=== PATIENT | male | born 2000 | race Caucasian/White ===

== ENCOUNTER 2024-04-07 22:29 | Emergency (ER) | payer BC, SELFPAY ==
[2024-04-07 22:35] VITALS: BP 164/106; BMI 46.8
[2024-04-07 22:50] VITALS: BP 118/101
[2024-04-07 23:00] VITALS: BP 109/56
[2024-04-07 23:11] LABS: % Basophils 1.3 % (0-2); % Immature Granulocytes 0.4 % (0-0.5); % Lymphocytes 32.2 % (20.5-51.1); % Monocytes 11.4 % (1.7-9.3); % Neutrophils 53.7 % (42.2-75.2); Absolute Basophils 0.2 10^3/uL (0-0.2); Absolute Eosinophils 0.1 10^3/uL (0-0.7); Absolute Immature Granulocytes 0.1 10^3/uL (0-0.05); Absolute Lymphocytes 4.1 10^3/uL (1.2-3.4); Absolute Monocytes 1.5 10^3/uL (0.1-0.6); Absolute Neutrophils 6.9 10^3/uL (1.4-6.5); Hematocrit 39.7 % (39.0-52.0); Hemoglobin 14.2 g/dL (13.0-18.0); Mean Corp Hgb Conc. 35.8 g/dL (33.0-37.0); Mean Corpuscular Volume 83.9 fL (80.0-94.0); Mean Platelet Volume 10.2 fL (7.4-10.4); Nucleated Red Blood Cells % 0 % (-); Platelet Count 318 10^3/uL (130-400); Red Blood Cell Count 4.73 10^6/uL (4.70-6.10); White Blood Cell Count 12.8 10^3/uL (4.8-10.8)
--- NOTE | 2024-04-07 23:20 | ED.GENMED ---
History of Present Illness
<TOMMY Felder - Last Filed: 04/07/24 23:36>
General
Chief Complaint: Chest Pain
Source: patient
Exam Limitations: none
Time Seen by Provider: 04/07/24 22:56
History of Present Illness
History of Present Illness:
This is a 24 YO M with no significant PMH presents here today for intermittent chest pain x 3 days. He states he was not doing anything out of the ordinary when this first occurred. He describes the pain as sharp, and localized to the LUSB with one
episode of radiating pain into his left arm. He complains of a constant headache for the past three days. He admits to taking Advil for pain without relief. He rates the severity a 3-4/10. Denies fever, chills, SOB, N, V, and diarrhea. Pt reports
this has never happened before.
Denies smoking history. Occasional alcohol use consisting of beers. 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 Denies recent surgeries, hospitalizations, or recent trauma.
<Robb Gomez DO - Last Filed: 04/08/24 03:08>
Travel History
Have you had any contact with someone who has COVID-19?: No
Do you have any symptoms of coronavirus? Fever > 100 degrees, chills, cough, shortness of breath, sore throat, loss of taste or smell, muscle aches, or headache?: No
Past History
<TOMMY Felder - Last Filed: 04/07/24 23:36>
Social History
Tobacco: Non-smoker
Alcohol: Occasional
Review of Systems
<TOMMY Felder - Last Filed: 04/07/24 23:36>
Review of Systems
Allergies reviewed?: Yes
Constitutional: Reports no symptoms
EENT: Reports no symptoms
Respiratory: Reports no symptoms
Cardiac: Reports chest pain
ABD/GI: Reports no symptoms
: Reports no symptoms
Musculoskeletal: Reports no symptoms
Skin: Reports no symptoms
Neurological: Reports headache
Phy Exam
<TOMMY Felder - Last Filed: 04/07/24 23:36>
Physical Exam
Physical Exam:
Normal S1 and S2 without murmurs, rubs, or gallops. Breath sounds are equal bilaterally.
General Physical Exam
General Presentation: well appearing
General age: appears stated age
General Skin: diaphoretic (Back area)
General Habitus: obese
Scores
<Robb Gomez DO - Last Filed: 04/08/24 03:08>
Heart Score for Chest Pain Patients
STEMI patient?: No
History: Slightly or Non-Suspicious
ECG: Normal
Age: </= 45 years
Risk Factors: No Risk Factors
Troponin: </= Normal Limit
Heart Score for Chest Pain Patients: 0
Heart Score Risk: 2.5% MACE over next 6 weeks
PE Wells Score
Symptoms of DVT: No
No alternative diagnosis better explains the illness: No
Tachycardia with pulse > 100: No
Immobilization (>=3 days) or surgery within previous 4 weeks: No
Prior history of DVT or pulmonary embolism: No
Presence of hemoptysis: No
Presence of malignancy: No
Pulmonary Embolism Risk Score: 0
Probability of PE: Pt is low risk
Course
<TOMMY Felder - Last Filed: 04/07/24 23:36>
Orders/Labs/Results
Orders:
Orders
04/07/24 22:34
Electrocardiogram (*1) Urgent
Reason for Study: Chest Pain
EKG- Treatment ONCE
04/07/24 23:01
Complete Blood Count/With Diff Urgent
Comprehensive Metabolic Panel Urgent
Troponin I Urgent
04/08/24 00:42
Electrocardiogram (*1) Urgent
Reason for Study: Chest Pain
EKG- Treatment ONCE
04/08/24 01:36
D-Dimer Urgent
Troponin I Urgent
04/08/24 02:14
CR Chest - 2 Views Urgent
Comment:
Reason For Exam: chest pain
Abnormal Lab Results
04/07/24
23:01
WBC 12.8 H 10^3/uL
(4.8-10.8)
Abs Immat Gran (auto) 0.1 H 10^3/uL
(0-0.05)
Absolute Neuts (auto) 6.9 H 10^3/uL
(1.4-6.5)
Absolute Lymphs (auto) 4.1 H 10^3/uL
(1.2-3.4)
Absolute Monos (auto) 1.5 H 10^3/uL
(0.1-0.6)
Monocytes % 11.4 H %
(1.7-9.3)
Creatinine 0.6 L mg/dL
(0.7-1.3)
Glucose 113 H mg/dl
(70-99)
04/07/24 23:01
04/07/24 23:01
Vital Signs
Initial and Last Documented VS:
Initial Vital Signs
Temp Pulse Resp BP Pulse Ox
98.7 F 98 18 164/106 99
04/07/24 22:35 04/07/24 22:35 04/07/24 22:35 04/07/24 22:35 04/07/24 22:35
Last Documented Vital Signs
Temp Pulse Resp BP Pulse Ox
98.7 F 83 17 109/56 96
04/07/24 22:35 04/07/24 23:30 04/07/24 23:30 04/07/24 23:00 04/07/24 23:30
<Robb Gomez, DO - Last Filed: 04/08/24 03:08>
Orders/Labs/Results
Orders:
Orders
04/07/24 22:34
Electrocardiogram (*1) Urgent
Reason for Study: Chest Pain
EKG- Treatment ONCE
04/07/24 23:01
Complete Blood Count/With Diff Urgent
Comprehensive Metabolic Panel Urgent
Troponin I Urgent
04/08/24 00:42
Electrocardiogram (*1) Urgent
Reason for Study: Chest Pain
EKG- Treatment ONCE
04/08/24 01:36
D-Dimer Urgent
Troponin I Urgent
04/08/24 02:14
CR Chest - 2 Views Urgent
Comment:
Reason For Exam: chest pain
Abnormal Lab Results
04/07/24
23:01
WBC 12.8 H 10^3/uL
(4.8-10.8)
Abs Immat Gran (auto) 0.1 H 10^3/uL
(0-0.05)
Absolute Neuts (auto) 6.9 H 10^3/uL
(1.4-6.5)
Absolute Lymphs (auto) 4.1 H 10^3/uL
(1.2-3.4)
Absolute Monos (auto) 1.5 H 10^3/uL
(0.1-0.6)
Monocytes % 11.4 H %
(1.7-9.3)
Creatinine 0.6 L mg/dL
(0.7-1.3)
Glucose 113 H mg/dl
(70-99)
04/07/24 23:01
04/07/24 23:01
Vital Signs
Initial and Last Documented VS:
Initial Vital Signs
Temp Pulse Resp BP Pulse Ox
98.7 F 98 18 164/106 99
04/07/24 22:35 04/07/24 22:35 04/07/24 22:35 04/07/24 22:35 04/07/24 22:35
Last Documented Vital Signs
Temp Pulse Resp BP Pulse Ox
98.7 F 83 17 109/56 96
04/07/24 22:35 04/07/24 23:30 04/07/24 23:30 04/07/24 23:00 04/07/24 23:30
<TOMMY Felder - Last Filed: 04/07/24 23:36>
MDM/Problems Addressed
Differential Diagnosis Includes:
HTN, Costochondritis, STEMI vs. NSTEMI
MDM/Problems Addressed:
Intermittent CP x 3 days
<TOMMY Felder - Last Filed: 04/07/24 23:36>
*Critical Care Note
Total Time (30-74mins, 75-104mins- exclusive of procedures): Not Applicable
ED Attending Note
<Robb Gomez DO - Last Filed: 04/08/24 03:08>
ED Attending Note
Patient seen and examined by attending physician: Yes
I performed the substantive portion of visit, reviewed & personally made and approve the management plan that is documented in note by myself or ADRIAN.: Yes
ED Attending Note:
24-year-old male that presents with intermittent chest pain that is been present for the last 3 days. He states that he was at rest when the pain initially occurred. Patient denies any current radiation. He reports no alleviating or exacerbating
symptoms denies fever, chills, nausea or vomiting. Patient reports no cardiac history or familial cardiac history. Patient was seen in conjunction with the PA student. I have reviewed and agree with the history and treatment plan presented. On
my independent physical exam, patient is awake, alert, and oriented x3, no acute distress at time of exam. Heart is regular rate and rhythm. Lungs are clear to auscultation bilaterally without wheezes rales or rhonchi. Patient is obese.
EKG shows normal sinus rhythm rate 86 with normal intervals, normal axis. No evidence of acute ischemia present. This is normal EKG.
-
Portions of this chart may have been created with voice recognition software.� Occasional wrong word or��sound alike� substitutions may have occurred due to the inherent limitations of voice recognition software.
Discharge Plan
Departure
Patient Disposition: Home (Routine Discharge)
Date of Disposition: 04/08/24
Time of Disposition: 03:07
Patient with high blood pressure during this ER visit?: No
Condition: Good
Discharge Problem:
Chest pain
Instructions: Chest Pain PCP Follow Up
Referrals:
Felicitas Foster CRNP [Family Provider] -
Activity Restrictions/Additional Instructions:
It was a pleasure meeting you and taking part in your care. We hope for your continued healing and wellness.
Please read discharge instructions in their entirety. However, they are for general education and may not describe your exact diagnosis at discharge. Information on your ER visit and medical conditions were discussed with you along with appropriate
follow up information...
If indicated, please take your medications as instructed and indicated on discharge paperwork.
Please schedule a follow up appointment as directed. Call to schedule an appointment
Please return to the emergency department with ANY change in, persisting, or worsening of symptoms. If any of your symptoms do not improve, or persist, or become more severe within 6-12 hours, please return to the emergency department for further
care.
Please return to the emergency department if you develop a headache, neck pain/stiffness, fever greater than 100.4F, chest pain, shortness of breath, persistent nausea, vomiting, slurred speech, difficulty walking, numbness/tingling, weakness, signs
of infection or any other symptoms that are worrisome to you.
If you have any questions or concerns please do not hesitate to call the Hospital at or E-mail me directly at [email or web address]
Interventions
Interventions:
*Risk Screen - Suicide Last Done: 04/07/24 22:35
*General Assessment Last Done: 04/07/24 23:00
*Neglect/Abuse Screening Last Done: 04/07/24 22:35
ED- Fall Risk Assessment Last Done: 04/07/24 22:35
*ED COVID-19 Vaccine History Last Done: 04/07/24 23:00
ED- Cardiac Assessment Last Done: 04/07/24 23:00
Discharge Date and Time
Print Language: KUWAITI
[2024-04-07 23:23] LABS: ALT (SGPT) 31 U/L (0-50); AST (SGOT) 30 U/L (17-59); Albumin 4.5 g/dl (3.5-5.0); Alkaline Phosphatase 73 U/L (38-126); Blood Urea Nitrogen 15 mg/dl (9-20); Calcium 9.5 mg/dl (8.4-10.2); Carbon Dioxide 25 mmol/L (22-30); Chloride 103 mmol/L (98-107); Estimated Creatinine Clearance > 125 ml/min; Glucose 113 mg/dl (70-99); Potassium 4.3 mmol/L (3.5-5.1); Sodium 137 mmol/L (135-145); Total Bilirubin 0.5 mg/dl (0.2-1.3); Total Protein 7.7 g/dl (6.3-8.2); eGFR > 60.00
[2024-04-07 23:34] LABS: Troponin I < 0.012 ng/ml
[2024-04-08] VITALS: BP 112/62
[2024-04-08 01:02] VITALS: BP 119/60
[2024-04-08 01:54] LABS: D-Dimer 0.37 ug/mlFEU (0.00-0.50)
[2024-04-08 02:09] LABS: Troponin I < 0.012 ng/ml
== END 2024-04-08 03:21 | disposition home or self-care (01) ==
LOC: EMR 22:29
PROVIDERS: Emergency Medicine; EMERGENCY PHYSICIAN Student in an Organized Health Care Education/Training Program; FAMILY PHYSICIAN Nurse Practitioner Family
DX: R07.89 Other chest pain (principal); R51.9 Headache, unspecified; M79.602 Pain in left arm; E66.9 Obesity, unspecified
CPT/HCPCS: 99284; 71046; 80053; 84484; 85025; 85379; 93005

== ENCOUNTER 2024-07-15 10:09 | Emergency (ER) | payer BC, SELFPAY ==
[2024-07-15] VITALS (7 sets, daily range): BP systolic 116–162; BP diastolic 48–104; BMI 47.2
[2024-07-15 11:31] LABS: % Basophils 0.5 % (0-2); % Eosinophils 2.4 % (0-6); % Immature Granulocytes 0.4 % (0-0.5); % Lymphocytes 12.6 % (20.5-51.1); % Monocytes 7.3 % (1.7-9.3); % Neutrophils 76.8 % (42.2-75.2); Absolute Basophils 0.1 10^3/uL (0-0.2); Absolute Eosinophils 0.4 10^3/uL (0-0.7); Absolute Immature Granulocytes 0.1 10^3/uL (0-0.05); Absolute Lymphocytes 2.3 10^3/uL (1.2-3.4); Absolute Monocytes 1.3 10^3/uL (0.1-0.6); Absolute Neutrophils 14.2 10^3/uL (1.4-6.5); Hematocrit 41.9 % (39.0-52.0); Hemoglobin 15.1 g/dL (13.0-18.0); Mean Corpuscular Hgb 30.1 pg (27.0-31.0); Mean Corpuscular Volume 83.6 fL (80.0-94.0); Mean Platelet Volume 10.2 fL (7.4-10.4); Nucleated Red Blood Cells % 0 % (-); Platelet Count 331 10^3/uL (130-400); Red Blood Cell Count 5.01 10^6/uL (4.70-6.10); Red Cell Dist. Width 12.3 % (11.5-14.5); White Blood Cell Count 18.5 10^3/uL (4.8-10.8)
[2024-07-15 11:44] LABS: ALT (SGPT) 27 U/L (0-50); AST (SGOT) 28 U/L (17-59); Alkaline Phosphatase 60 U/L (38-126); Blood Urea Nitrogen 16 mg/dl (9-20); Calcium 10.2 mg/dl (8.4-10.2); Carbon Dioxide 25 mmol/L (22-30); Chloride 101 mmol/L (98-107); Estimated Creatinine Clearance > 125 ml/min; Glucose 109 mg/dl (70-99); Potassium 4.2 mmol/L (3.5-5.1); Sodium 139 mmol/L (135-145); Total Bilirubin 0.8 mg/dl (0.2-1.3); Total Protein 7.9 g/dl (6.3-8.2); eGFR > 60.00
[2024-07-15 11:55] LABS: Troponin I < 0.012 ng/ml
[2024-07-15] MEDS: TORADOL 30 MG IV (13:54)
[2024-07-15] MEDS: REGLAN 10 MG IV (13:54)
--- NOTE | 2024-07-15 15:46 | ED.GENMED ---
History of Present Illness
General
Chief Complaint: Chest Pain
Source: patient and family
Exam Limitations: none
Time Seen by Provider: 07/15/24 10:37
Nursing documentation reviewed up to this point in time: agreed with
History of Present Illness
History of Present Illness:
24-year-old male presenting to the emergency department today with 2 main concerns. First concern is chest discomfort described as an achy discomfort in the left upper chest seems to be intermittent over the past few days had an episode this
morning a few hours prior to arrival to the emergency department. Not associate with shortness of breath nausea vomiting or diarrhea. Additionally had a diffuse headache that starts in the front of his head as a pressure radiates to the back of
his head has been following up with his primary care doctor for this and was treated with methylprednisolone and also given a Z-Ramos for possible sinusitis. Otherwise the headache at this point is minimal he denies this being abrupt or severe at
this moment. No neurologic symptoms no changes in vision. No neck pain or stiffness no fevers.
Past History
Social History
Tobacco: Non-smoker
Alcohol: Occasional
Review of Systems
Review of Systems
Allergies reviewed?: Yes
All Other Systems: ROS reviewed and negative except as documented in HPI and ROS
Phy Exam
Physical Exam
Physical Exam:
GENERAL: Alert , in no apparent distress
EYE: pupils equal and reactive
NECK: Supple, no significant adenopathy.
ENT: o/p clr, mmm.
CARDIAC: Regular rate and rhythm .
LUNGS: Clear breath sounds bilaterally, no acute respiratory distress, no wheezes/rales/rhonchi
ABDOMEN: Soft, without focal tenderness, no r/g, no cvat
NEUROLOGICAL: Alert and oriented, no focal neuro deficits
SKIN: Warm and dry, skin intact.
MUSCULOSKELETAL: No edema, well perfused.
PSYCH: Normal and appropriate interaction.
5-5 upper and lower extremity strength normal sensation with palpating bilaterally normal finger-nose and heel gates no pronator drift
Scores
Heart Score for Chest Pain Patients
STEMI patient?: No
History: Slightly or Non-Suspicious
ECG: Normal
Age: </= 45 years
Risk Factors: No Risk Factors
Troponin: </= Normal Limit
Heart Score for Chest Pain Patients: 0
Heart Score Risk: 2.5% MACE over next 6 weeks
Course
Orders/Labs/Results
Orders:
Orders
07/15/24 10:10
ECG [Electrocardiogram (*1)] Urgent
Reason for Study: Chest Pain
07/15/24 10:11
EKG- Treatment ONCE
07/15/24 10:57
CR Chest - 2 Views Urgent
Comment:
Reason For Exam: cp
07/15/24 11:23
Complete Blood Count/With Diff Urgent
Comprehensive Metabolic Panel Urgent
Magnesium Urgent
Troponin I Urgent
07/15/24 13:39
CT Head W/o Iv Contrast Urgent
Comment:
Reason For Exam: headache progressive x 5 weeks
07/15/24 13:41
Ketorolac [Toradol] 30 mg IV NOW STA
Metoclopramide [Reglan] 10 mg IV NOW STA
Abnormal Lab Results
07/15/24
11:23
WBC 18.5 H 10^3/uL
(4.8-10.8)
Abs Immat Gran (auto) 0.1 H 10^3/uL
(0-0.05)
Absolute Neuts (auto) 14.2 H 10^3/uL
(1.4-6.5)
Absolute Monos (auto) 1.3 H 10^3/uL
(0.1-0.6)
Neutrophils % 76.8 H %
(42.2-75.2)
Lymphocytes % 12.6 L %
(20.5-51.1)
Glucose 109 H mg/dl
(70-99)
07/15/24 11:23
07/15/24 11:23
Vital Signs
Initial and Last Documented VS:
Initial Vital Signs
Temp Pulse Resp BP Pulse Ox
99.0 F 76 18 162/104 100
07/15/24 10:16 07/15/24 10:16 07/15/24 10:16 07/15/24 10:16 07/15/24 10:16
Last Documented Vital Signs
Temp Pulse Resp BP Pulse Ox
99.0 F 76 19 123/59 95
07/15/24 10:16 07/15/24 14:00 07/15/24 14:00 07/15/24 14:15 07/15/24 14:00
MDM/Problems Addressed
MDM/Problems Addressed:
24-year-old male presenting to the emergency department today with concerns of headaches intermittently over the past month seen by his primary care doctor for this presumed to be sinusitis and treated with azithromycin and a steroid. Otherwise
also has noticed intermittent chest pain described as aching to the left upper chest last episode was earlier this morning a few hours prior to arrival. No significant ongoing chest pain no shortness of breath nausea vomiting or diaphoresis. Upon
arrival blood pressure is elevated otherwise vital signs are normal. The blood pressure improved without specific treatment. White count elevated but patient is currently taking a steroid otherwise labs unremarkable troponin negative EKG normal
chest x-ray normal ACS very unlikely emergent pathology very. Head CT was obtained due to the ongoing and progressive headache over the past month but did not show any emergent findings he was given information for follow-up with neurology. Return
precautions given.
*Critical Care Note
Total Time (30-74mins, 75-104mins- exclusive of procedures): Not Applicable
ED Attending Note
-
Portions of this chart may have been created with voice recognition software.� Occasional wrong word or��sound alike� substitutions may have occurred due to the inherent limitations of voice recognition software.
Discharge Plan
Departure
Patient Disposition: Home (Routine Discharge)
Date of Disposition: 07/15/24
Time of Disposition: 15:50
Patient with high blood pressure during this ER visit?: No
Condition: Good
Covid-19: Not Applicable
Discharge Problem:
Chest pain, Headache
Instructions: Chest Pain PCP Follow Up
Prescriptions:
No Action
azithromycin 250 mg Tablet
250 mg PO DAILY
methylprednisolone [Methylprednisone] 4 mg Tablet
4 mg PO .TAPER
Referrals:
Hossein Sun MD [Active] - Follow up in 10 days
Felicitas Foster CRNP [Family Provider] -
Activity Restrictions/Additional Instructions:
You came to the emergency department today with concerns of chest pain and headache. Here you to reassuring assessment without signs of emergent pathology. It is important to follow-up closely as an outpatient for further monitoring and assessment
of this. Return to the emergency department for any worsening, new or concerning symptoms.
Interventions
Interventions:
*Risk Screen - Suicide Last Done: 07/15/24 10:16
*General Assessment Last Done: 07/15/24 10:16
*Neglect/Abuse Screening Last Done: 07/15/24 10:16
ED- Fall Risk Assessment Last Done: 07/15/24 10:52
*ED COVID-19 Vaccine History Last Done: 07/15/24 10:16
ED- Cardiac Assessment Last Done: 07/15/24 10:47
Discharge Date and Time
Print Language: ARABIC
== END 2024-07-15 16:05 | disposition home or self-care (01) ==
LOC: EMR 10:09
PROVIDERS: Physician Assistant; EMERGENCY PHYSICIAN Emergency Medicine; FAMILY PHYSICIAN Nurse Practitioner Family
DX: R07.89 Other chest pain (principal); R51.9 Headache, unspecified
CPT/HCPCS: 99285; 96374; 96375; 70450; 71046; 80053; 83735; 84484; 85025; 93005

== ENCOUNTER → 2024-09-19 13:53 | Outpatient (REF) | payer BC, SELFPAY | LOC: HWRAD 13:53 | PROVIDERS: ATTENDING PHYSICIAN Physician Assistant | DX: R07.89 Other chest pain (principal); M25.512 Pain in left shoulder | CPT/HCPCS: 71046; 73030 ==

== ENCOUNTER → 2025-02-15 14:47 | Outpatient (REF) | payer BC, SELFPAY | LOC: HWRAD 14:47 | PROVIDERS: ATTENDING PHYSICIAN Physician Assistant; FAMILY PHYSICIAN Nurse Practitioner Family | DX: N50.812 Left testicular pain (principal) | CPT/HCPCS: 76870; 93976 ==